=== PATIENT | female | born 1970 | race Caucasian/White ===

== ENCOUNTER → 2018-11-21 | Outpatient (CLI) | payer BC, SELFPAY ==
[2018-11-21 08:23] VITALS: BMI 28.3
[2018-11-21 12:27] LABS: Absolute Lymphocyte Count 2.11 X10^3/uL (0.83-4.51); Basophil# 0.05 X10^3/uL; Basophil% 0.6 % (0-1); Eosinophil# 0.09 X10^3/uL; Eosinophils% 1.2 % (0-5); Hematocrit 40.4 % (37-47); Hemoglobin 13.3 g/dL (12.0-15.0); Lymphocyte # 2.11 X10^3/ul (4.0); Lymphocyte % 27.4 % (19-41); Mean Corp Hgb Conc 32.9 g/dL (32-36); Mean Corpuscular Hgb 30.1 pg (27.0-32.0); Mean Corpuscular Volume 91.4 fL (81-99); Monocyte# 0.44 X10^3/uL; Monocyte% 5.7 % (0-10); NRBC Flagged by Analyzer 0 % (0-5); Neutrophil # 4.99 X10^3/uL (2.7-7.7); Neutrophil % 64.7 % (47-70); Platelet Count 281 K/mm3 (150-450); RBC Distribution Width CV 11.9 % (11.6-14.6); RBC Distribution Width SD 39.6 fl (35.1-43.9); Red Blood Count 4.42 M/mm3 (4.2-5.4); White Blood Count 7.7 K/mm3 (4.4-11.0)
[2018-11-21 12:49] LABS: AST(SGOT) 28 U/L (15-37); Alanine Aminotransfer ALT/SGPT 29 U/L (13-56); Albumin, Serum 3.7 g/dL (3.2-5.0); Alkaline Phosphatase 90 U/L (45-117); Anion Gap 4 (5-15); BUN 16 mg/dL (7-18); BUN/Creat Ratio 28.4 RATIO (10-20); Calcium,Total 8.7 mg/dL (8.5-10.1); Chloride 105 mmol/L (98-107); Cholesterol 171 mg/dL (200); Creatinine, Serum 0.56 mg/dL (0.55-1.02); EST Glomerular Filtration Rate 122 mL/min (>60); Est Glom Filt Rate - Afr Amer 148 mL/min (>60); Globulin 3.6 g/dL (2.2-4.2); Glucose 93 mg/dL (74-106); High Density Lipoprotein 64 mg/dL; Potassium 3.9 mmol/L (3.5-5.1); Protein, Total 7.3 g/dL (6.4-8.2); Sodium Level 137 mmol/L (136-145); Triglycerides 78 mg/dL; Very Low Density Lipoprotein 16 mg/dL (5-40)
== END | disposition home or self-care (01) ==
LOC: BIMLAB 09:02
PROVIDERS: Family Provider Family Medicine; PCP Internal Medicine; Visit Provider Internal Medicine
DX: Z00.00 Encounter for general adult medical examination without abnormal findings (principal)
CPT/HCPCS: 36415; 80053; 80061; 85025

== ENCOUNTER → 2018-12-13 | Outpatient (CLI) | payer BC, SELFPAY ==
[2018-11-21 08:23] VITALS: BMI 28.3
--- NOTE | 2018-12-13 07:12 | BI_ITS ---
MAMMOGRAPHY - BILATERAL SCREENING REASON FOR EXAM: Female, 48 years old. Routine annual screening examination. PERTINENT HISTORY: Non-contributory. TECHNIQUE: Digital bilateral breast galen (3D mammographic acquisition) in the CC and MLO projections. 2-D mediolateral oblique (MLO) and craniocaudad (CC) views of both breasts were obtained. CAD: Full Field Digital Mammography with Computer Added Detection was performed. COMPARISON: Comparison is made with prior outside study dated December 21, 2016. FINDINGS: Breast Composition: The breasts are heterogeneously dense, which may obscure small masses. There are no dominant masses or suspicious calcifications. No other significant abnormalities are identified. There has been no significant change since the prior study. BI/SCREEN MAMM (CAD) W/GALEN BILAT IMPRESSION: Stable bilateral screening mammogram. Yearly follow-up mammogram recommended. (A) ASSESSMENT CATEGORY: BIRADS Category 1: Negative. A letter regarding these results will be sent to the patient by the facility within 30 days. Approximately 10% of breast cancers are not detected by mammography. A normal mammogram should not delay biopsy of a clinically suspicious abnormality. [id number] Electronically Signed: Warren Baer, at 9:01 EST , Service support ,
== END | disposition home or self-care (01) ==
LOC: OPBI 07:11
PROVIDERS: Family Provider Internal Medicine; PCP Internal Medicine; Referring Provider Internal Medicine; Visit Provider Internal Medicine
DX: Z12.31 Encounter for screening mammogram for malignant neoplasm of breast (principal)
CPT/HCPCS: 77063; 77067

== ENCOUNTER 2020-02-28 15:25 | Outpatient (RCR) | payer BC, SELFPAY ==
[2019-06-08 11:35] VITALS: BMI 28.3
== END 2020-02-28 23:59 ==
LOC: IMMUN 15:25
PROVIDERS: PCP Internal Medicine; Visit Provider Family Medicine
DX: Z23 Encounter for immunization (principal)
CPT/HCPCS: 0011A; 0012A; 91301

== ENCOUNTER → 2020-12-26 14:23 | Outpatient (CLI) | payer BC, SELFPAY ==
[2021-01-03 13:41] LABS: HPV APTIMA, High Risk Negative (Negative)
== END ==
PROVIDERS: PCP Internal Medicine; Visit Provider Obstetrics & Gynecology
DX: Z12.4 Encounter for screening for malignant neoplasm of cervix (principal)
CPT/HCPCS: 87624; 88175; G0145

== ENCOUNTER 2021-03-30 06:45 | Day surgery (SDC) | payer BC, SELFPAY ==
[2021-03-30] VITALS (7 sets, daily range): BP systolic 91–126; BP diastolic 66–84; PULSE 61–89; RESP 16–18; TEMP 36.8–37.5; O2SAT 98–100; BMI 29.4
[2021-03-30] MEDS: Lactated Ringers 1,000 ML 15 ML IV (07:05)
[2021-03-30 07:23] LABS: Internal QC Validated? YES +Cl - CLEAR BKGD; Pregnancy, Urine Negative Negative
--- NOTE | 2021-03-30 07:24 | H&P.OPEN ---
HPI - General HPI Narrative JAYMIE HOLDEN, is a 51 F who presents for screening colonoscopy. Patient's never had a previous colonoscopy. Denies any family history of colon cancer. Patient denies any current abdominal pain/nausea/vomiting/reflux. Patient has bowel moods daily denies any blood. PFS Medical History (Updated 03/25/21 @ 14:05 by Celeste Lincoln) Anemia Chronic headaches Heart valve disorder History of echocardiogram History of irregular heartbeat Low grade squamous intraepithelial lesion (LGSIL) Non-smoker Wears glasses Home Medications NK 03/25/21 [History Last Taken Unknown] Allergy/AdvReac Type Severity Reaction Status Date / Time No Known Allergies Allergy Verified 03/30/21 07:16 Family History Father Myocardial infarction, Onset Age: 67 Mother Ovarian cancer Suicide attempt Surgical History H/O colposcopy with cervical biopsy Hx of cholecystectomy Social History (Updated 12/26/20 @ 13:08 by Melanie Alan) Smoking Status: Never smoker alcohol intake: current Alcohol type: wine substance use type: does not use caffeine: Yes what type of physical activity do you participate in: walking, bicycling and other seatbelt use: always do you feel safe at home: Yes additional social history: [employer] Past Medical/Surgical History Planned Operation Planned Operative Procedure/s: COLONOSCOPY Previous Hospitalizations/Surgeries HX Hospitalizations: No Any Problems With Anesthesia: No You/Your Family Experience Fever (Hyperthermia) With Anes: No Cholinesterase deficiency: No Cardiovascular Hx of Irregular Heartbeat and/or Afib: Yes Hx Heart Attack: No Hx Congestive Heart Failure: No Hx Hypertension: No Hx Pacemaker: No Respiratory Hx Chronic Obstructive Pulmonary Disease (COPD): No Hx Asthma: No Hx Emphysema: No Hx Sleep Apnea: No Hx Respiratory Tract Infection/Cold (presently): No Do You Snore Loudly (louder than talking or can be heard): No Do You Often Feel Tired/ Fatigued/ Sleepy Dring Daytime?: No Has Anyone Observed You Stop Breathing During Sleep?: No Result (for STOP score): Negative Smoking Status: Never smoker Gastrointestinal Hx Gastroesophageal Reflux: No Hx Ulcer: No Neurological Hx Seizures: No Hx Head/Neck Injury: No Hx Headaches: No Hx Back Injury/Pain: No Does patient have nerve stimulator: No Reproduction : No Miscellaneous Recent Exposure to Contagious Disease: No Allergies No Known Allergies Allergy (Verified 03/30/21 07:16) Discharge Is Pt Admitted From a [facility], or a Nursing Home: No After D/C, Where Do you Plan to Go: Return Home Vital Signs Vital Signs Vital Signs: 03/30/21 07:18 03/30/21 07:20 Temperature 99.5 F H Temperature Source Temporal Pulse Rate 89 Respiratory Rate 18 Respiratory Pattern Normal Blood Pressure 126/84 H Blood Pressure Mean 98 Blood Pressure Source Monitor Blood Pressure Position Semi-Fowlers Blood Pressure Location Right Arm Pulse Ox 98 Oxygen Delivery Method Room Air Weight Weight: 150 lb 12.739 oz Body Mass Index (BMI) 29.4 Physical Exam Const alert, oriented x3 and no apparent distress HEENT normocephalic and head/scalp atraumatic Resp normal respiratory effort Cardio regular rate GI soft to palpation and non-tender; Negative for non-distended Palpation: Negative for guarding Extremity no clubbing, cyanosis or edema Neuro CN's II-XII intact bilaterally Psych mental status grossly normal Assessment & Plan Assessment/Plan (1) Encounter for screening for malignant neoplasm of colon: Procedure Criteria Type of Procedure Procedure Type: Elective Elective Risks - COVID COVID Risk Discussion: The surgeon/proceduralist and patient have discussed in detail the risk of exposure to and/or potential harm posed by the COVID-19 virus with having a surgery/procedure at this time versus the risk of delaying the surgery/procedure. It is not possible to know either the risk of delaying the surgery or procedure or chance of getting an infection with perfect accuracy, but a joint decision was made between the patient and the surgeon/proceduralist to proceed at this time with the scheduled surgery/procedure as indicated on the consent form. Surgery Risks - Colonoscopy Risks Include but are not Limited To: Risks include but are not limited to: Bleeding, perforation requiring further surgery, inability to complete colonoscopy requiring barium enema.
--- NOTE | 2021-03-30 08:35 | OP.COLON_ITS ---
Patient Name: Minerva Crandall Procedure Date: 03/30/2021 8:06 AM Date of : 1970 Age: 51 Procedure: Colonoscopy Indications: Screening for colorectal malignant neoplasm Providers: Chary Wiley MD Medicines: Monitored Anesthesia Care Patient Profile: This is a 51 year old female. Last Colonoscopy: none. The patient's first colonoscopy is today. Complications: No immediate complications. Procedure: Pre-Anesthesia Assessment: - Prior to the procedure, a History and Physical was performed, and patient medications and allergies were reviewed. The patient's tolerance of previous anesthesia was also reviewed. The risks and benefits of the procedure and the sedation options and risks were discussed with the patient. All questions were answered, and informed consent was obtained. Prior Anticoagulants: The patient has taken no previous anticoagulant or antiplatelet agents. ASA Grade Assessment: Per anesthesia. After reviewing the risks and benefits, the patient was deemed in satisfactory condition to undergo the procedure. After I obtained informed consent, the scope was passed under direct vision. Throughout the procedure, the patient's blood pressure, pulse, and oxygen saturations were monitored continuously. The Colonoscope was introduced through the anus and advanced to the cecum, identified by the appendiceal orifice, ileocecal valve and palpation. The colonoscopy was performed without difficulty. The patient tolerated the procedure well. The quality of the bowel preparation was good. Scope In: 8:14:42 AM Scope Withdrawal Time 0 hours 7 minutes 55 seconds Scope Out: 8:28:18 AM Total Procedure Duration Time 0 hours 13 minutes 36 seconds Findings: Hemorrhoids were found on perianal exam. External and internal hemorrhoids were found. The hemorrhoids were Grade I (internal hemorrhoids that do not prolapse). The entire examined colon appeared normal. Impression: - Hemorrhoids found on perianal exam. - External and internal hemorrhoids. - The entire examined colon is normal. - No specimens collected. Recommendation: - Discharge patient to home. - Resume previous diet. - Continue present medications. - Repeat colonoscopy in 10 years for screening purposes. Procedure Code(s): --- Professional --- G0121, PT, Colorectal cancer screening; colonoscopy on individual not meeting criteria for high risk Diagnosis Code(s): --- Professional --- Z12.11, Encounter for screening for malignant neoplasm of colon K64.0, First degree hemorrhoids CPT copyright 2017 [employer]. All rights reserved. The codes documented in this report are preliminary and upon bond manager review may be revised to meet current compliance requirements. MD Chary Mayorga MD 03/30/2021 8:35:22 AM This report has been signed electronically. Number of Addenda: 0 Note Initiated On: 03/30/2021 8:06 AM
--- NOTE | 2021-03-30 08:36 | OP.CCLET_ITS ---
03/30/2021 Javed Mcgowan MD [address] [place] [address] [place] [address] Re : Colonoscopy procedure for Minerva Crandall Dear Dr. Mcgowan This procedure was performed on Tuesday, March 30, 2021. My impressions and recommendations are as follows: Impressions : - Hemorrhoids found on perianal exam. - External and internal hemorrhoids. - The entire examined colon is normal. - No specimens collected. Recommendations : - Discharge patient to home. - Resume previous diet. - Continue present medications. - Repeat colonoscopy in 10 years for screening purposes. My findings are described in the full procedure note, which is enclosed. If I can be of further assistance, please feel free to contact me at Doctor phone number(s): , Work: . Sincerely, MD Chary Mayorga MD 03/30/2021 8:35:22 AM This report has been signed electronically.
== END 2021-03-30 23:59 | disposition home or self-care (01) ==
LOC: EN 06:48 → AC 06:48
PROVIDERS: Anesthesiology; PCP Internal Medicine; Referring Provider Internal Medicine; Visit Provider Surgery
PROC: 0DJD8ZZ Inspection of Lower Intestinal Tract, Via Natural or Artificial Opening Endoscopic (ICD-10-PCS; CPT 45378; principal; 2021-03-30 08:10)
DX: Z12.11 Encounter for screening for malignant neoplasm of colon (principal); K64.4 Residual hemorrhoidal skin tags; K64.0 First degree hemorrhoids
CPT/HCPCS: 45378; 81025; J7120; J2405

== ENCOUNTER 2021-05-14 07:25 | Outpatient (CLI) | payer BC, SELFPAY ==
--- NOTE | 2021-05-14 07:27 | BI_ITS ---
MAMMOGRAPHY - BILATERAL SCREENING REASON FOR EXAM: Female, 51 years old. Routine annual screening examination. PERTINENT HISTORY: Non-contributory. TECHNIQUE: Digital bilateral breast galen (3D mammographic acquisition) in the CC and MLO projections. 2-D mediolateral oblique (MLO) and craniocaudad (CC) views of both breasts were obtained. CAD: Full Field Digital Mammography with Computer Added Detection was performed. COMPARISON: Comparison is made with prior examination 12/13/2018. FINDINGS: Breast Composition: The breasts are heterogeneously dense, which may obscure small masses. There is a 7 mm x 8 mm nodular density deep upper lateral aspect of the right breast. Correlation with ultrasound is recommended. No other significant abnormalities are identified. BI/SCRN MAMM (CAD)W/GALEN BILAT IMPRESSION: 7 mm x 8 mm nodular density in the deep upper lateral aspect of the right breast. Correlation with ultrasound is recommended. ASSESSMENT CATEGORY: BIRADS Category 0: Incomplete. Need additional imaging evaluation. A letter regarding these results will be sent to the patient by the facility within 30 days. Approximately 10% of breast cancers are not detected by mammography. A normal mammogram should not delay biopsy of a clinically suspicious abnormality. [id number] Electronically Signed: Warren Baer MD at 8:51 EDT ,
== END 2021-05-14 23:59 | disposition home or self-care (01) ==
LOC: OPBI 07:26
PROVIDERS: PCP Internal Medicine; Referring Provider Obstetrics & Gynecology; Visit Provider Obstetrics & Gynecology
DX: Z12.31 Encounter for screening mammogram for malignant neoplasm of breast (principal)
CPT/HCPCS: 77063; 77067

== ENCOUNTER 2021-05-18 10:53 | Outpatient (CLI) | payer BC, SELFPAY ==
--- NOTE | 2021-05-18 10:55 | US_ITS ---
STUDY: ULTRASOUND BREAST - RIGHT REASON FOR EXAM: Female, 51 years old. Abnormal screening mammogram. TECHNIQUE: Axial and longitudinal images of the RIGHT breast were performed with a high resolution ultrasound transducer. # OF IMAGES: 50 COMPARISON: Comparison is made with prior mammogram dated 05/14/2021. FINDINGS: RIGHT Breast: The mammographic abnormality corresponds to a 8mm by 8mm by 4 mm well-defined hypoechoic nodule at the 9 o''clock position breast at 10 cm from nipple. This has the appearance of a benign appearing lymph node. US/Breast Limited Unilateral IMPRESSION: The mammographic abnormality) and a millimeter by 8 mm x 4 mm well-defined hypoechoic nodule with an echogenic hilus suggestive of a lymph node. ASSESSMENT CATEGORY: BIRADS Category 2: Benign. A letter regarding these results will be sent to the patient by the facility within 30 days. Electronically Signed: Warren Baer MD at 15:01 EDT ,
== END 2021-05-18 23:59 | disposition home or self-care (01) ==
LOC: OPUS 10:53
PROVIDERS: PCP Internal Medicine; Visit Provider Obstetrics & Gynecology
DX: R92.8 Other abnormal and inconclusive findings on diagnostic imaging of breast (principal)
CPT/HCPCS: 76642

== ENCOUNTER → 2021-09-08 | Outpatient (CLI) | payer BC, SELFPAY ==
[2021-09-08 12:40] LABS: Absolute Lymphocyte Count 1.94 X10^3/uL (0.83-4.51); Absolute Neutrophil Count 4.1 X10^3/uL (2.0-7.7); Basophil# 0.05 X10^3/uL; Basophil% 0.8 % (0-1); Eosinophil# 0.08 X10^3/uL; Eosinophils% 1.2 % (0-5); Hematocrit 38.3 % (37-47); Hemoglobin 12.8 g/dL (12.0-15.0); Lymphocyte # 1.94 X10^3/ul (0.83-4.51); Lymphocyte % 29.8 % (19-41); Mean Corp Hgb Conc 33.4 g/dL (32-36); Mean Corpuscular Hgb 29.8 pg (27.0-32.0); Mean Corpuscular Volume 89.3 fL (81-99); Mean Platelet Vol. 9.8 fl (6.2-12.0); Monocyte# 0.37 X10^3/uL; Monocyte% 5.7 % (0-10); NRBC Flagged by Analyzer 0 % (0-5); Neutrophil # 4.06 X10^3/uL (2.7-7.7); Neutrophil % 62.2 % (47-70); Platelet Count 304 K/mm3 (150-450); RBC Distribution Width CV 12.5 % (11.6-14.6); RBC Distribution Width SD 41.1 fl (35.1-43.9); Red Blood Count 4.29 M/mm3 (4.2-5.4); White Blood Count 6.5 K/mm3 (4.4-11.0)
[2021-09-08 13:11] LABS: AST(SGOT) 19 U/L (15-37); Alanine Aminotransfer ALT/SGPT 34 U/L (13-56); Albumin, Serum 3.8 g/dL (3.2-5.0); Alkaline Phosphatase 98 U/L (45-117); Anion Gap 6 (5-15); BUN 17 mg/dL (7-18); BUN/Creat Ratio 23.8 RATIO (10-20); Calcium,Total 8.7 mg/dL (8.5-10.1); Chloride 107 mmol/L (98-107); Creatinine, Serum 0.72 mg/dL (0.55-1.02); EST Glomerular Filtration Rate 92 mL/min (>60); Est Glom Filt Rate - Afr Amer 111 mL/min (>60); Glucose 115 mg/dL (74-106); Potassium 4.2 mmol/L (3.5-5.1); Protein, Total 7.8 g/dL (6.4-8.2); Sodium Level 140 mmol/L (136-145)
== END | disposition home or self-care (01) ==
LOC: BIMLAB 08:43
PROVIDERS: PCP Internal Medicine; Visit Provider Internal Medicine
DX: K21.9 Gastro-esophageal reflux disease without esophagitis (principal)
CPT/HCPCS: 36415; 80053; 85025

== ENCOUNTER → 2022-05-17 | Outpatient (CLI) | payer BC, SELFPAY ==
--- NOTE | 2022-05-17 07:16 | BI_ITS ---
MAMMOGRAPHY - BILATERAL SCREENING 3-D TOMOSYNTHESIS REASON FOR EXAM: Female, 52 years old. Routine screening PERTINENT HISTORY: No significant family history. TECHNIQUE: 2-D mammograms and 3-D Tomosynthesis of the breast (s) were performed. CAD was performed. COMPARISON: 05/14/2021 FINDINGS: The breast composition is heterogeneously dense that can obscure small breast masses. Scattered benign calcifications are seen. No dense spiculated masses or suspicious microcalcifications are identified. No architectural distortion is identified. There is no skin thickening or retraction. There has been no significant change since the prior study. BI/SCRN MAMM (CAD)W/GALEN BILAT IMPRESSION: No mammographic signs of malignancy. Routine yearly mammograms recommended. ASSESSMENT CATEGORY: BIRADS Category 2: Benign. A letter regarding these results will be sent to the patient by the facility within 30 days. FOLLOW UP RECOMMENDATION: Yearly follow up mammogram recommended. (A) Approximately 10% of breast cancers are not detected by mammography. A normal mammogram should not delay biopsy of a clinically suspicious abnormality. Electronically Signed: Sam Lawson MD at 7:53 EDT ,
== END | disposition home or self-care (01) ==
LOC: OPBI 07:13
PROVIDERS: PCP Internal Medicine; Referring Provider Obstetrics & Gynecology; Visit Provider Obstetrics & Gynecology
DX: Z12.31 Encounter for screening mammogram for malignant neoplasm of breast (principal)
CPT/HCPCS: 77063; 77067

== ENCOUNTER → 2022-12-06 | Outpatient (CLI) | payer BC, SELFPAY ==
--- NOTE | 2022-12-06 07:57 | US_ITS ---
STUDY: ULTRASOUND OF THE FEMALE PELVIS - COMPLETE REASON FOR EXAM: Female, 52 years old. Abnormal uterine bleeding LMP: 11/01/2022 TECHNIQUE: Transabdominal and Transvaginal TECHNICAL QUALITY: Adequate. COMPARISON: None. FINDINGS: The uterus is anteverted and is in a midline position. The uterus measures 9.7 x 6.5 x 5.1 cm. Normal uterine cervix. The endometrium measures 10 mm in thickness, and is hyperechoic. There is no demonstrated endometrial mass. 1.5 cm hypoechoic mass of the posterior body of uterus consistent with an intramural fibroid. I.U.D. - The patient does not have an I.U.D. The right ovary is visualized. The right ovary measures 2.6 x 1.7 x 1.3 cm. There is no right ovarian cyst or ovarian mass. There is no visualized right adnexal mass or complex lesion. There is normal arterial and normal venous vascularity. The left ovary is visualized. The left ovary measures 2.5 x 2.2 x 0.9 cm. There is no left ovarian cyst or ovarian mass. There is no visualized left adnexal mass or complex lesion. There is normal arterial and normal venous vascularity. There is no fluid in the cul-de-sac. The pre void volume of the bladder was 460 ml. The post void volume of the bladder was ml. Polycystic ovary disease: No. US/Pelvic (Non ) IMPRESSION: Small fibroid in the posterior body of uterus. Electronically Signed: Laci Medrano MD at 23:38 EDT ,
== END | disposition home or self-care (01) ==
PROVIDERS: PCP Internal Medicine; Referring Provider Nurse Practitioner Women's Health; Visit Provider Nurse Practitioner Women's Health
DX: N93.9 Abnormal uterine and vaginal bleeding, unspecified (principal)
CPT/HCPCS: 76830; 76856

== ENCOUNTER → 2022-12-08 | Outpatient (CLI) | payer BC, SELFPAY ==
--- NOTE | 2022-12-08 13:55 | EMB_PTH ---
PATIENT: JAYMIE HOLDEN LOC: [facility] U#:[id number] AGE/SX: 52/F ROOM: RE12/08/[address]: ISAMAR Lombardo : 1970 BED: DIS: 12/08/2022 SPEC #: [id number] RECD: 12/08/22 14:30 STATUS: MANISHA REKarol #: [id number] NELL: 12/08/22 13:[address]: Linda Montoya NP DEPT: SURGICAL PATHOLOGY RECD BY: Kitty Jones ENTERED: 12/09/22 09:19 SP TYPE: ENDOM BX/C SAIGE DR: Dr. Javed Mcgowan MD Tissues: Endometrium, NOS Procedures: Surgery Specimen Level IV HEADER OPERATION: Endometrial biopsy PRE-OP DIAGNOSIS: Abnormal uterine bleeding TISSUE SUBMITTED: Endometrial tissue MICROSCOPIC DIAGNOSIS Endometrium, biopsy: Weakly proliferative endometrium with focal glandular breakdown. AM:juany 12/10/2022 MICROSCOPIC DESCRIPTION Slides are reviewed. GROSS DESCRIPTION Received is one container labeled with the patient's name and not further designated. The specimen consists of multiple irregular fragments of light shah tissue that in aggregate measure 2.5 x 1.0 x <0.1 cm. The specimen is totally submitted in one cassette. / AM:juany 12/09/2022 TC:5 CPT: 90839
== END | disposition home or self-care (01) ==
LOC: LABSPEC 14:53
PROVIDERS: PCP Internal Medicine; Referring Provider Nurse Practitioner Women's Health; Visit Provider Nurse Practitioner Women's Health
DX: N93.9 Abnormal uterine and vaginal bleeding, unspecified (principal)
CPT/HCPCS: 88305

== ENCOUNTER 2023-09-28 10:36 | Emergency (ER) | payer BC, SELFPAY ==
[2023-09-28 10:37] VITALS: BP 195/101; PULSE 88; RESP 16; TEMP 36.6; O2SAT 98; BMI 32.5
--- NOTE | 2023-09-28 10:59 | CT_ITS ---
STUDY: CT BRAIN WITHOUT CONTRAST REASON FOR EXAM: Female, 53 years old. headache RADIATION DOSAGE (If Supplied By Facility): CTDIvol = ( 44.99 ) mGy, DLP = ( 762.36 ) mGycm TECHNIQUE: Transaxial CT imaging of the brain was performed without administration of intravenous contrast material. Individualized dose optimization techniques were used for this CT. COMPARISON: No relevant priors. FINDINGS: Normal soft tissue structures. Normal calvarium. Normal size ventricles and extra-axial spaces for the patient''s age. Normal white matter tracts of the cerebral hemispheres. Normal basal ganglia and thalami. Normal brainstem. Normal cerebellum. There is no intracranial hemorrhage. There are no findings of an acute ischemic infarction. Normal visualized paranasal sinuses. CT/Brain/Head without Contrast IMPRESSION: Normal unenhanced CT scan of the brain. Electronically Signed: Laci Medrano MD at 11:59 EDT ,
--- NOTE | 2023-09-28 11:00 | EKG12_ITS ---
Test Reason : HIGH BP Blood Pressure : / mmHG Vent. Rate : 071 BPM Atrial Rate : 071 BPM P-R Int : 172 ms QRS Dur : 082 ms QT Int : 406 ms P-R-T Axes : 007 009 015 degrees QTc Int : 441 ms Normal sinus rhythm Normal ECG Confirmed by KAITY GOODMAN, KRISH ([id number]), slot editor RICH GUPTA ([id number]) on 09/30/2023 6:44:25 AM Referred By: Confirmed By:STEPHAN BRICENO MD
--- NOTE | 2023-09-28 11:00 | EDS_ITS ---
HPI History of Present Illness Chief Complaint: Hypertension Informant: patient and family Narrative Narrative: 53-year-old female presenting to the emergency room with chief complaint of hypertension. Patient was at work today when she began to experience an anxiety like feeling with frontal and temporal headache elevated blood pressure blurry vision which was originally near vision and now far vision. She states that this could be anxiety but she has never had it this bad. She is on Wellbutrin. She does not take any other prescription medicines. She does take some [id number] medications. No significant caffeine use. Patient denies any arm or leg weakness. She notes a history of a valve disorder but is unsure which one [facility] Medical History Palpitations Hypertension Pain of right anterior lower extremity Gastritis Nausea & vomiting Gastroesophageal reflux disease Wears glasses Non-smoker History of echocardiogram History of irregular heartbeat Low grade squamous intraepithelial lesion (LGSIL) Heart valve disorder Chronic headaches Anemia Home Medications ?Medication ?Instructions ?Recorded ?Last Taken ?Type bupropion HCl 150 mg 24 hr tablet, 150 mg PO QAM #30 tabs 02/23/23 Unknown Rx extended release (Wellbutrin XL) Allergy/AdvReac Type Severity Reaction Status Date / Time No Known Allergies Allergy Verified 02/15/23 08:32 Family History Father Myocardial infarction, Onset Age: 67 Diabetes Heart disease Hypertension Mother Ovarian cancer Suicide attempt Surgical History H/O colposcopy with cervical biopsy Hx of cholecystectomy Social History current occupational status: employed current occupation: [employer] Smoking Status: Never smoker alcohol intake: current Alcohol type: wine substance use type: does not use caffeine: Yes what type of physical activity do you participate in: walking, bicycling and other seatbelt use: always do you feel safe at home: Yes additional social history: Jose [employer]ST[employer] ROS ED Constitutional Constitutional ED: Denies chills, fever(s) or weight loss Eyes Eyes: Reports blurry vision and change in vision; Denies diplopia ENT ENT ED: Denies ear pain, rhinorrhea or sore throat Cardiovascular Cardiovascular: Denies chest pain, orthopnea, palpitations or racing heartbeat Respiratory/Chest Respiratory/Chest: Reports dyspnea; Denies cough or orthopnea Gastrointestinal Gastrointestinal: Denies abdominal pain, diarrhea, nausea or vomiting Genitourinary Genitourinary ED: Denies dysuria, hematuria or urinary frequency Musculoskeletal Musculoskeletal: Denies arthralgias or myalgias Integumentary Denies abscess or rash Neurologic Neurologic: Reports headache(s); Denies weakness Psychiatric Psychiatric: Reports anxiety; Denies depression, suicidal ideation or suicidal thoughts Endocrine Endocrinology: Denies polydipsia, polyphagia or polyuria Allergic/Immunologic Allergic/Immunologic ED: Denies mouth swelling, tongue swelling or urticaria EXAM Physical Exam Const Vital Signs: 09/28/23 10:37 09/28/23 11:15 09/28/23 11:36 Temperature 97.8 F Temperature Source Temporal Pulse Rate 88 74 Respiratory Rate 16 15 Respiratory Effort Normal Respiratory Pattern Tachypnea Blood Pressure 195/101 H 107/86 H Blood Pressure Mean 132 93 Pulse Ox 98 99 Oxygen Delivery Method Room Air Room Air 09/28/23 12:00 09/28/23 13:00 09/28/23 13:57 Temperature 98 F Temperature Source Pulse Rate 77 72 75 Respiratory Rate 12 15 16 Respiratory Effort Respiratory Pattern Blood Pressure 168/98 H 119/73 116/79 Blood Pressure Mean 121 88 91 Pulse Ox 98 99 99 Oxygen Delivery Method Room Air Positive well nourished and well developed General Appearance ED: well developed HEENT Reports normocephalic, head/scalp atraumatic and moist mucous membranes Eyes PERRL and EOMs intact bilaterally Neck no lymphadenopathy, supple and no JVD Resp normal respiratory effort and clear to auscultation bilaterally Cardio regular rate, regular rhythm and no murmurs GI normal to inspection, nondistended, normoactive bowel sounds and non-tender Palpation: soft Back/Spine no CVA tenderness and normal ROM Extremity normal to inspection General Extremety ED: Negative for edema General Extremity: Negative for edema Neuro oriented x3 and CN's II-XII intact bilaterally Sensorium / Orientation: alert Motor Exam: strength 5/5 throughout Psych mental status grossly normal Mood & Affect: anxious and tearful; Negative for depressed Skin no rashes or lesions noted and no wounds MDM MDM MDM Narrative Medical decision making narrative: Differential diagnosis includes hypertensive urgency/emergency endorgan damage such as renal failure liver disease ACS/elevated troponin heart strain intracranial hemorrhage stroke electrolyte abnormality. Basic blood work including CBC BMP liver and troponin essentially normal. Alkaline phosphatase noted to be 127 glucose of 111. Urinalysis shows no proteinuria or infection. My independent interpretation of the chest x-ray is no acute process. CT the brain was negative. Patient received a dose of Ativan as well as a dose of Zofran for nausea. Her blood pressure has trended down currently 116/79. We have had multiple readings like this. She has been up ambulating without difficulty and is feeling much better. At this point I think the patient can be discharged home. I have asked that she follow-up with her primary care doctor in a week. Patient notes understanding the plan is comfortable with it will return if worsening or concerns History & Record Review Discussion w/independent historian: Patient and Significant other Lab Data Attestation: I reviewed the patient's lab results. Labs: Laboratory Results - last 24 hr 09/28/23 09/28/23 11:15 11:55 WBC 7.9 RBC 4.35 Hgb 12.8 Hct 36.9 L MCV 84.8 MCH 29.4 MCHC 34.7 RDW Std Deviation 37.0 RDW Coeff of [place] 12.2 Plt Count 303 MPV 9.4 Immature Gran % (Auto) 0.300 Neut % (Auto) 51.4 Lymph % (Auto) 41.0 [place] % (Auto) 5.9 Eos % (Auto) 0.8 Baso % (Auto) 0.6 Absolute Neuts (auto) 4.1 Absolute Lymphs (auto) 3.25 Nucleated RBC % 0 Sodium 138 Potassium 3.5 Chloride 105 Carbon Dioxide 25.0 Anion Gap 8 BUN 13 Creatinine 0.74 Estim Creat Clear Calc 80.74 Est GFR (MDRD) Af Amer 106 Est GFR (MDRD) Non-Af 87 BUN/Creatinine Ratio 17.5 Glucose 111 H Calcium 9.8 Total Bilirubin 0.50 Direct Bilirubin 0.17 AST 19 ALT 30 Alkaline Phosphatase 127 H Troponin I High Sens < 3 L Total Protein 8.0 Albumin 4.0 Globulin 4.0 Urine Color Yellow Urine Clarity Sl. Cloudy Urine pH 7.0 Ur Specific [place] 1.010 Urine Protein Negative Urine Glucose (UA) Normal Urine Ketones 15 H Urine Occult Blood Negative Urine Nitrite Negative Urine Bilirubin Negative Urine Urobilinogen Normal Ur Leukocyte Esterase Negative Urine RBC 0 SEEN Urine WBC 0 SEEN Ur Squamous Epith Cells 0 SEEN Urine Bacteria 0 SEEN Urine Mucus 0 SEEN Radiography Diagnostic Testing: Clinical Impression(s) from Imaging Studies Brain CT 09/28/23 10:59 IMPRESSION: Normal unenhanced CT scan of the brain. Electronically Signed: Laci Medrano MD at 11:59 EDT , Chest X-Ray 09/28/23 11:26 IMPRESSION: No interval change and no acute or active cardiopulmonary disease. Electronically Signed: Kilo Ernandez MD at 11:49 EDT , EKG Initial EKG: Attestation: I personally reviewed and interpreted this EKG as follows: Comments: Normal sinus rhythm ventricular at 71 bpm Discharge Plan Triage Chief Complaint: Hypertension ED Provider: Dirk Park Dx/Rx/DC Orders Clinical Impression: Hypertension, Paresthesia, Anxiety Instructions: ED High Blood Pressure Hypertension Prescriptions: No Action bupropion HCl [Wellbutrin XL] 150 mg tablet extended release 24 hr 150 mg PO QAM Qty: 30 12RF Primary Care Provider: Javed Mcgowan Referrals: Javed Mcgowan MD [Primary Care Provider] - 1 Week Print Language: Czech Disposition Disposition: Home, Self Care Discharge Date/Time: 09/28/23 14:02
[2023-09-28] MEDS: LORazepam 2 MG/ML Syringe 1 MG IV (11:12)
[2023-09-28 11:20] LABS: Absolute Lymphocyte Count 3.25 X10^3/uL (0.83-4.51); Absolute Neutrophil Count 4.1 X10^3/uL (2.0-7.7); Basophil# 0.05 X10^3/uL; Basophil% 0.6 % (0-1); Eosinophil# 0.06 X10^3/uL; Eosinophils% 0.8 % (0-5); Hematocrit 36.9 % (37-47); Hemoglobin 12.8 g/dL (12.0-15.0); Lymphocyte # 3.25 X10^3/ul (0.83-4.51); Mean Corp Hgb Conc 34.7 g/dL (32-36); Mean Corpuscular Hgb 29.4 pg (27.0-32.0); Mean Corpuscular Volume 84.8 fL (81-99); Mean Platelet Vol. 9.4 fl (6.2-12.0); Monocyte# 0.47 X10^3/uL; Monocyte% 5.9 % (0-10); NRBC Flagged by Analyzer 0 % (0-5); Neutrophil # 4.08 X10^3/uL (2.7-7.7); Neutrophil % 51.4 % (47-70); Platelet Count 303 K/mm3 (150-450); RBC Distribution Width CV 12.2 % (11.6-14.6); Red Blood Count 4.35 M/mm3 (4.2-5.4); White Blood Count 7.9 K/mm3 (4.4-11.0)
--- NOTE | 2023-09-28 11:26 | RAD_ITS ---
STUDY: X-RAY CHEST REASON FOR EXAM: Female, 53 years old. Hypertension. TECHNIQUE: Single frontal view of the chest. COMPARISON: May 22, 2012 FINDINGS: The lungs are clear and expanded. There is no demonstrated pleural abnormality. Normal size heart. Normal mediastinum and jolynn. Normal visualized pulmonary arteries. Normal visualized aortic arch and descending thoracic aorta. No abnormality of the visualized soft tissue structures of the upper abdomen. RAD/Chest 1 View (Portable) IMPRESSION: No interval change and no acute or active cardiopulmonary disease. Electronically Signed: Kilo Ernandez MD at 11:49 EDT ,
[2023-09-28 11:36] VITALS: BP 107/86; PULSE 74; RESP 15; O2SAT 99
[2023-09-28 11:39] LABS: AST(SGOT) 19 U/L (15-37); Alanine Aminotransfer ALT/SGPT 30 U/L (13-56); Alkaline Phosphatase 127 U/L (45-117); Anion Gap 8 (5-15); BUN 13 mg/dL (7-18); BUN/Creat Ratio 17.5 RATIO (10-20); Bilirubin, Direct 0.17 mg/dL (0.00-0.30); Calcium,Total 9.8 mg/dL (8.5-10.1); Chloride 105 mmol/L (98-107); Creatinine, Serum 0.74 mg/dL (0.55-1.02); EST Glomerular Filtration Rate 87 mL/min (>60); Est Glom Filt Rate - Afr Amer 106 mL/min (>60); Estimated Creatinine Clearance 80.74 ml/min; Glucose 111 mg/dL (74-106); Potassium 3.5 mmol/L (3.5-5.1); Sodium Level 138 mmol/L (136-145); Troponin-I HS < 3 pg/mL (3.0-54.0)
[2023-09-28 12:00] VITALS: BP 168/98; PULSE 77; RESP 12; O2SAT 98
[2023-09-28 12:02] LABS: Bacteria 0 SEEN /hpf (None Seen); Mucous, Urine 0 SEEN /hpf (<or=2+); Red Blood Cells-Urine 0 SEEN /hpf (0-5); Squamous Epithelial Cells - UA 0 SEEN /hpf (5-10); White Blood Cells 0 SEEN /hpf (0-5)
[2023-09-28 12:04] LABS: Color, Urine Yellow (Yellow); Glucose, Dipstick Normal (Normal); Ketone-Dipstick 15 mg/dl (Negative); Leukocyte Esterase-Dipstick Negative /ul (Negative); Nitrite-Dipstick Negative (Negative); Occult Blood-Urine Negative /ul (Negative); Protein-Dipstick Negative (Negative); Urine Bilirubin Dipstick Negative (Negative); Urine Clarity Sl. Cloudy (Clear); Urine Urobilinogen Normal (Normal)
[2023-09-28] MEDS: Ondansetron 4 MG/2 ML Vial IV (12:36)
[2023-09-28 13:00] VITALS: BP 119/73; PULSE 72; RESP 15; O2SAT 99
[2023-09-28 13:57] VITALS: BP 116/79; PULSE 75; RESP 16; TEMP 36.6; O2SAT 99
== END 2023-09-28 14:02 | disposition home or self-care (01) ==
PROVIDERS: Emergency Provider Emergency Medicine; PCP Internal Medicine; Visit Provider Emergency Medicine
DX: I10 Essential (primary) hypertension (principal); F41.9 Anxiety disorder, unspecified; R20.2 Paresthesia of skin; R51.9 Headache, unspecified; Z79.899 Other long term (current) drug therapy; K21.9 Gastro-esophageal reflux disease without esophagitis; R06.00 Dyspnea, unspecified; R11.0 Nausea
CPT/HCPCS: 70450; 71045; 80048; 80076; 81001; 84484; 85025; 93005; 96374; 96375; 99284; A4216; J2405

== ENCOUNTER → 2023-09-30 | Outpatient (CLI) | payer BC, SELFPAY ==
[2023-09-30 12:50] LABS: Cholesterol 179 mg/dL (200); High Density Lipoprotein 69 mg/dL; Triglycerides 69 mg/dL; Very Low Density Lipoprotein 14 mg/dL (5-40)
[2023-09-30 14:58] LABS: T4 Free Direct 1.01 ng/dL (0.76-1.46)
[2023-10-09 12:07] LABS: ALDOSTERONE/RENIN RATIO 7.9 (0.0-30.0); Aldosterone, Serum 7.7 ng/dL (0.0-30.0); Renin, Plasma 0.977 ng/mL/hr (0.167-5.380)
== END | disposition home or self-care (01) ==
LOC: BIMLAB 09:13
PROVIDERS: PCP Internal Medicine; Referring Provider Internal Medicine; Visit Provider Internal Medicine
DX: Z00.00 Encounter for general adult medical examination without abnormal findings (principal); I10 Essential (primary) hypertension; F41.9 Anxiety disorder, unspecified; Z13.29 Encounter for screening for other suspected endocrine disorder
CPT/HCPCS: 36415; 80061; 82088; 84244; 84439; 84443

== ENCOUNTER → 2023-10-03 | Outpatient (CLI) | payer BC, SELFPAY ==
[2023-10-10 14:07] LABS: Dopamine, 24Ur 238 ug/24 hr (0-510); Dopamine, UR 298 ug/L (Undefined); Epinephrine, 24Ur 3 ug/24 hr (0-20); Epinephrine, Ur 4 ug/L (Undefined); Norepinephrine, 24Ur 53 ug/24 hr (0-135); Norepinephrine, Ur 66 ug/L (Undefined)
== END | disposition home or self-care (01) ==
LOC: LABSPEC 08:24
PROVIDERS: PCP Internal Medicine; Referring Provider Internal Medicine; Visit Provider Internal Medicine
DX: I10 Essential (primary) hypertension (principal); F41.9 Anxiety disorder, unspecified
CPT/HCPCS: 81050; 82384

== ENCOUNTER 2023-10-25 06:48 | Outpatient (CLI) | payer SELFPAY ==
--- NOTE | 2023-10-25 06:55 | CT_ITS ---
STUDY: CT CHEST WITHOUT CONTRAST REASON FOR EXAM: Female, 53 years old. FAM HX HEART DISEASE RADIATION DOSAGE (If Supplied By Facility): CTDIvol = ( 12.19 ) mGy, DLP = ( 195.04 ) mGycm TECHNIQUE: Transaxial imaging was performed without the administration of intravenous contrast material. Cardiac over read examination. Individualized dose optimization techniques were used for this CT. COMPARISON: No relevant priors. FINDINGS: CHEST The lungs are normal. There is no demonstrated pleural abnormality. No significant coronary artery calcification is seen. Normal mediastinum. Normal hilar regions. Normal unenhanced pulmonary arteries. Normal aorta arch and descending thoracic aorta. There are degenerative changes of the thoracic spine. There is no demonstrated abnormality of the visualized upper abdomen. CT/Limited Chest CT Cardiac Only IMPRESSION: No significant coronary artery calcification is seen. Electronically Signed: Warren Baer MD at 9:50 EDT ,
--- NOTE | 2023-10-31 14:35 | CA.SCORE ---
Calcium Scoring Coronary Calcium Scoring: High-resolution Computed Tomographic imaging of the chest was performed on [ ], with particular attention paid to the coronary arteries. Images from the examination were analyzed for the presence and extent of coronary artery calcification , using coronary calcium quantification software. The patient tolerated the procedure well and there were no complications. The results of the coronary calcification analysis are provided below. Findings Coronary Artery Left Main (LM): 0 Left Anterior Descending (LAD): 0 Left Circumflex (LCX): 0 Right Coronary Artery (RCA): 0 Total Agatston Score: 0 Percentile Rankin% Calcium Scoring Interpretation: Different methods to categorize the overall amount of coronary plaque. Overall amount CAC SIS Visual of coronary plaque P1 Mild -100 <2 1-2 vessels with mild amount of plaque P2 Moderate 101-300 3-4 1-2 vessels with moderate amount, 3 vessels with mild amount of plaque P3 Severe 301-999 5-7 3 vessels with moderate amount, 1 vessel with severe amount of plaque P4 Extensive >1000 >8 2-3 vessels with severe amount of plaque Conclusion: No atherosclerotic plaquing noted.
== END 2023-10-25 23:59 | disposition home or self-care (01) ==
LOC: CT 06:53
PROVIDERS: PCP Internal Medicine; Referring Provider Internal Medicine; Visit Provider Internal Medicine
DX: R00.2 Palpitations (principal); Z82.49 Family history of ischemic heart disease and other diseases of the circulatory system
CPT/HCPCS: 75571; 76380

== ENCOUNTER → 2024-05-29 | Outpatient (CLI) | payer BC, SELFPAY ==
--- NOTE | 2024-05-29 08:10 | BI_ITS ---
EXAM: SCRN MAMM (CAD)W/GALEN BILAT DATE: 05/29/2024 CLINICAL HISTORY: F, Age 54 y/o , SCREENING FOR BREAST CANCER No family history. BREAST CANCER RISK ASSESSMENT: Not assessed. TECHNIQUE: Bilateral screening digital breast tomosynthesis with 2D and 3D images. Computer aided detection. COMPARISON: Prior exam(s) dated May 17, 2022.. FINDINGS: TISSUE DENSITY: The breast tissue is composed of scattered area of fibroglandular density. Bilateral Breast Mammographic Findings: No significant masses, calcifications or other abnormalities are identified. No suspicious masses, areas of developing architectural distortion, or suspicious calcifications. There has been no significant interval change. BI/SCRN MAMM (CAD)W/GALEN BILAT IMPRESSION: OVERALL FINAL ASSESSMENT: BIRADS 1 NEGATIVE RECOMMENDATION: Routine annual follow-up in 1 Year A letter with findings and recommendations will be mailed to the patient. Reading Location: [place] [id number]
== END | disposition home or self-care (01) ==
LOC: OPBI 08:09
PROVIDERS: PCP Internal Medicine; Referring Provider Nurse Practitioner Women's Health; Visit Provider Nurse Practitioner Women's Health
DX: Z12.31 Encounter for screening mammogram for malignant neoplasm of breast (principal)
CPT/HCPCS: 77063; 77067